=== PATIENT | female | born 1985 | race Caucasian/White ===

== ENCOUNTER → 2018-06-03 | Outpatient (CLI) | payer BC ==
[~2018-06-03] MED LIST: DIPH50CA62 PO; MULT-224 PO
== END | disposition home or self-care (01) ==
LOC: STAR 08:12
PROVIDERS: ATTEND Orthopaedic Surgery
DX: Z02.9 Encounter for administrative examinations, unspecified (principal)

== ENCOUNTER 2018-06-11 07:08 | Day surgery (SDC) | payer BC ==
[~2018-06-11] VITALS: Ht 170.2 cm; Wt 75.4 kg
[~2018-06-11 07:08] MED LIST changes: +CEFAZOLIN 1,000 MG ONE; +FENTANYL PF 100 MCG/2ML ONE; +LIDOCAINE 1%-EPI 1:100K, 30ML ONE; +LIDOCAINE-MPF 2% ,5ML ONE; +MIDAZOLAM 1 MG/ML, 2ML ONE; +PROPOFOL 10 MG/ML, 20ML ONE; +ROPIvacaine/PF 0.5%, 30 ML ONE
[2018-06-11] MEDS ORDERED: LACTATED RINGERS 1,000 ML IV SCH (07:39)
[2018-06-11 08:00] LABS: HCG UR SG 1.022 (1.003-1.030)
[2018-06-11] MEDS ORDERED: ACETAMINOPHEN 500 MG TABLET PO ONE (08:00)
[2018-06-11] MEDS ORDERED: ONDANSETRON ODT 8 MG PO ONE (08:00)
[2018-06-11] MEDS ORDERED: LIDOCAINE-MPF 1%, 2ML INFIL ONE (08:00)
[2018-06-11] MEDS ORDERED: PROPOFOL 10 MG/ML, 20ML ONE (08:40)
[2018-06-11] MEDS ORDERED: FENTANYL PF 100 MCG/2ML IV PRN (09:00)
[2018-06-11] MEDS ORDERED: MEPERIDINE/PF 25MG/0.5ML IVPush PRN (09:00)
[2018-06-11] MEDS ORDERED: HYDROmorphone 1 MG/ML, 1ML IV PRN (09:00)
[2018-06-11] MEDS ORDERED: METOCLOPRAMIDE 5 MG/ML, 2ML IV PRN (09:00)
[2018-06-11] MEDS ORDERED: DIAZEPAM 5 MG/ML, 2ML IVPush PRN (09:00)
[2018-06-11] MEDS ORDERED: OXYcodone 5 MG/5 ML ORAL.SOL UDC ONE (09:30)
[2018-06-11] MEDS ORDERED: FENTANYL PF 100 MCG/2ML ONE (09:30)
[2018-06-11] MEDS: OXYcodone 5 MG/5 ML ORAL.SOL UDC PO PRN ×2 (09:34→10:37)
[2018-06-11] MEDS ORDERED: HYDROcodone/APAP 5/325 TABLET PO PRN (10:30)
== END 2018-06-11 12:30 | disposition home or self-care (01) ==
LOC: OUT 07:08
PROVIDERS: ATTEND Orthopaedic Surgery
DX: S83.231A Complex tear of medial meniscus, current injury, right knee, initial encounter (principal); M94.261 Chondromalacia, right knee; M65.861 Other synovitis and tenosynovitis, right lower leg; Z87.891 Personal history of nicotine dependence; Z72.89 Other problems related to lifestyle; Z98.890 Other specified postprocedural states; Z79.899 Other long term (current) drug therapy; X58.XXXA Exposure to other specified factors, initial encounter; Y93.89 Activity, other specified; Y92.89 Other specified places as the place of occurrence of the external cause; Y99.8 Other external cause status
CPT/HCPCS: 29881; 81025; J0690; J2250; J2704; J2795; J3010; J3490; J7120; Q0162